=== PATIENT | female | born 2000 | race Caucasian/White ===

== ENCOUNTER 2020-02-26 17:11 | Outpatient (CLI) | payer OTHER, SELFPAY ==
[2020-02-27 10:33] LABS: COVID-19 RT-PCR Result Negative (Negative)
== END 2020-02-26 17:31 ==
PROVIDERS: PCP Family Medicine; Visit Provider Physician Assistant
DX: R05 Cough (principal)
CPT/HCPCS: U0003

== ENCOUNTER 2021-03-12 19:35 | Outpatient (REF) | payer OTHER, SELFPAY ==
[2021-03-12 19:47] LABS: Anion Gap 12.2 mmol/L (3-11); BUN 8 mg/dL (7-18); CO2 24.8 mmol/L (21.0-32.0); CREATININE 0.9 mg/dL (0.55-1.02); Calcium 9.5 mg/dL (8.5-10.1); Chloride 105 mmol/L (98-107); Glucose 75 mg/dL (74-106); Potassium 4.2 mmol/L (3.5-5.1); Sodium 142 mmol/L (136-145); TSH (W/Ref FT4) 1.72 uIU/mL (0.36-3.74)
== END 2021-03-12 19:36 | disposition home or self-care (01) ==
LOC: NCHCN 19:35
PROVIDERS: PCP Family Medicine; Visit Provider Family Medicine
DX: R00.2 Palpitations (principal)
CPT/HCPCS: 80048; 83036; 84443

== ENCOUNTER 2021-08-19 19:54 | Outpatient (REF) | payer OTHER, SELFPAY ==
[2021-08-19 21:58] LABS: Bilirubin Negative (Negative); Blood Moderate (Negative); Clarity Clear (Clear); Glucose Negative (Negative); Ketones Negative (Negative); Leukocyte Esterase Trace (Negative); Nitrite Negative (Negative); Urobilinogen 0.2 EU/dL (Up TO 0.2)
[2021-08-19 22:10] LABS: Bacteria Few HPF (Negative); C & S Indicated? Yes; Casts Negative LPF (Negative); Crystals Negative HPF (Negative); Epithelial Cells Rare HPF (Negative); Mucus Negative (Negative)
== END 2021-08-19 19:55 | disposition home or self-care (01) ==
LOC: LBN 19:54
PROVIDERS: PCP Family Medicine; Visit Provider Nurse Practitioner Family
DX: R30.0 Dysuria (principal)
CPT/HCPCS: 81003; 81015; 87086

== ENCOUNTER 2022-01-04 12:13 | Outpatient (REF) | payer OTHER, SELFPAY ==
--- NOTE | 2022-01-04 09:30 | PAPFT_PTH ---
PATIENT: Emelina Reddy LOC: [facility]#:[id number] AGE/SX: 21/F ROOM: RE01/04/[address]: Antonieta Armstrong : 2000 BED: DIS: 01/04/2022 SPEC #: [id number] RECD: 01/04/22 17:30 STATUS: NAIF SANTOS #: [id number] KHALIDA: 01/04/22 09:[address]: Antonieta Armstrong DEPT: REPLACED BY [facility] Cytology RECD BY: Catia Fox Tissues: 1 - CX/ENDOCX FOR PAP SMEARS Procedures: PAP THIN PREP/[facility] Screening Comments: [id number] (CHLAMYDIA/GC)
[2022-01-05 15:16] LABS: Chlamydia Result Negative (Negative); GC Result Negative (Negative)
== END 2022-01-04 12:14 | disposition home or self-care (01) ==
LOC: NCHCN 12:13
PROVIDERS: PCP Family Medicine; Visit Provider Family Medicine
DX: Z12.4 Encounter for screening for malignant neoplasm of cervix (principal); Z11.3 Encounter for screening for infections with a predominantly sexual mode of transmission
CPT/HCPCS: 87491; 87591; 88142

== ENCOUNTER 2022-10-18 17:36 | Outpatient (REF) | payer OTHER, SELFPAY ==
[2022-10-20 10:19] LABS: Hepatitis C Ab w Rflx HCV PCR Negative (Negative)
[2022-10-20 10:38] LABS: HIV-1/2 Ag & Ab Screen Negative (Negative)
== END 2022-10-18 17:37 | disposition home or self-care (01) ==
LOC: NCHCN 17:36
PROVIDERS: PCP Family Medicine; Visit Provider Family Medicine
DX: Z00.00 Encounter for general adult medical examination without abnormal findings (principal); Z11.4 Encounter for screening for human immunodeficiency virus [HIV]; Z11.59 Encounter for screening for other viral diseases
CPT/HCPCS: 86803; 87389

== ENCOUNTER 2024-03-16 14:21 | Outpatient (REF) | payer OTHER, SELFPAY ==
[2024-03-16 19:30] LABS: Hemoglobin A1C 5.1 % (<5.7)
[2024-03-16 19:33] LABS: ALT 33 U/L (14-59); AST 17 U/L (15-37); Alkaline Phosphatase 93 U/L (46-116); Anion Gap 11.4 mmol/L (3-11); BUN 8 mg/dL (7-18); Bilirubin, Total 0.4 mg/dL (0.2-1.0); CO2 25.6 mmol/L (21.0-32.0); CREATININE 0.7 mg/dL (0.55-1.02); Chloride 103 mmol/L (98-107); Estimated GFR 124.55 (mL/min/1.73m2); Glucose 78 mg/dL (74-106); Potassium 3.9 mmol/L (3.5-5.1); Sodium 140 mmol/L (136-145); TSH (W/Ref FT4) 1.58 uIU/mL (0.36-3.74); Total Protein 7.1 g/dL (6.4-8.2)
== END 2024-03-16 14:22 | disposition home or self-care (01) ==
LOC: NCHCN 14:21
PROVIDERS: PCP Family Medicine; Visit Provider Family Medicine
DX: E66.9 Obesity, unspecified (principal)
CPT/HCPCS: 80053; 83036; 84443

== ENCOUNTER 2024-12-21 00:39 | Outpatient (CLI) | payer OTHER, SELFPAY ==
--- OUTSIDE RECORDS SUMMARY | 2024-12-21 00:40 | XMS_ITS | Encounter Summary ---
Author Organization [facility] Address [facility] [place] [address] Care Team Providers Care Cleaner And Presser Name Role Phone Antonieta Armstrong MD Primary Care Provider [phone] Encounter Details Date Type Department Care Team (Late st Contact Info) Description 11/25/2022 Orders [place] [address] Jsoe Chappell MD [facility] [place] [address] Need for prophylactic vaccination and inoculation against rabies Social History Tobacco Use Types Packs/Day Years Used Date Smoking Tobacco: Never Smokeless Tobacco: Never Sex and Gender Information Value Date Recorded Sex Assigned at Not on file Gender Identity Not on file Sexual Orientation Not on file documented as of this encounter Plan of Treatment Not on file documented as of this encounter Visit Diagnoses Diagnosis Need for prophylactic vaccination and inoculation against rabies documented in this encounter Care Teams Cleaner And Presser Relationship Specialty Start Date End Date Antonieta Armstrong MD [facility] [address] [place] [address] PCP - General Family Medicine 01/29/19 documented as of this encounter
--- OUTSIDE RECORDS SUMMARY | 2024-12-21 00:40 | XMS_ITS | Encounter Summary ---
Author Organization [facility] Address [facility] [place] [address] Care Team Providers Care Barrel Charrer Name Role Phone Antonieta Armstrong MD Primary Care Provider [phone] Encounter Details Date Type Department Care Team (Late st Contact Info) Description 11/25/2022 Telephone [place] [phone] Destinee Phipps RN Social History Tobacco Use Types Packs/Day Years Used Date Smoking Tobacco: Never Smokeless Tobacco: Never Sex and Gender Information Value Date Recorded Sex Assigned at Not on file Gender Identity Not on file Sexual Orientation Not on file documented as of this encounter Miscellaneous Notes * Telephone Encounter - Destinee Phipps RN - 11/25/2022 11:35 AM EST Referral received for rabies series as pt is in [employer] school. Reviewed with Dr Chappell: OK to proceed with 3 dose series. Per CDC: Risk category 3 People who interact with, or are at higher risk to interact, with mammals other than bats that could be rabid, for a period longer than three years after they receive PrEP This group includes: Most veterinarians, veterinary technicians, animal control officers, wildlife biologists, rehabilitators, trappers, and spelunkers (cave explorers) Certain travelers to regions outside of the [place] where rabies in dogs is commonly found 2 doses, days 0 and 7, plus: Either a one-time titer check after 1 year and up to 3 years following the first 2-dose vaccination OR 1-dose booster between 3 weeks and 3 years following the first vaccine in the 2- dose vaccination Message sent to the secretaries to schedule 3 dose series. Day 0, day 7, day 28 documented in this encounter Plan of Treatment Not on file documented as of this encounter Visit Diagnoses Not on filedocumented in this encounter Care Teams Barrel Charrer Relationship Specialty Start Date End Date Antonieta Armstrong MD [facility] [address] [facility] [address] [place] [address] PCP - General Family Medicine 01/29/19 documented as of this encounter
--- OUTSIDE RECORDS SUMMARY | 2024-12-21 00:40 | XMS_ITS | Clinical Summary ---
Author Organization [facility] Address [facility] [place] [address] Care Team Providers Care Telecom Field Technician Name Role Phone Antonieta Armstrong MD Primary Care Provider [phone] Allergies Active Allergy Reactions Criticality Noted Date Comments Amoxicillin Hives 01/29/2019 Medications Medication Sig Dispensed Refills Start Date End Date Status buPROPion (WELLBUTRIN SR) 100 mg tablet sustained-release 12 hr TAKE ONE TABLET BY MOUTH TWICE A DAY 5 12/12/2018 Active montelukast (SINGULAIR) 10 mg Tablet 01/14/2019 Active LOW-OGESTREL, 28, 0.3-30 mg-mcg Tablet 01/12/2019 Acti ve doxycycline (VIBRA-TABS) 100 mg TabletIndications:At risk for infectious disease due to recent foreign travel,Counseling for travel Take 2 capsules (200 mg total) once weekly starting a few days prior to travel. Continue weekly for two additional weeks. 6 tablet 01/31/2019 Active Active Problems Problem Noted Date Diagnosed Date Health care maintenance 01/29/2019 Immunizations Name Administration Dates Next Due DTaP 02/03/2007, 2,04/14/2001,01/09,2000 HIB PRP-T Conjugate (ActHIB, Hiberix, OmniHib) 01/08/2002,04/14/2001,01/09/2001,11/14 HPV 9-Valent (Gardasil 9) 04/14/2018,12/16/2017, 10/17/2017 Hepatitis A Pediatric/Adoles cent (Havrix, Vaqta) 01/29/2019 Hepatitis B Pediatric/Adoles cant (Engerix-B, Recombivax) 06/16/2001,2000,2000 Influenza Quadrivalent with Preservative 01/29/2019 Influenza Trivalent w/Preservative 10/17/2017 MMR Vaccine LIVE 02/03/2007,10/03/2001 Meningococcal Acwy, Unspecif ied Formulation 10/17/2017,06/13/2012 Pneumococcal 7-Valent Conjug ate (Prevnar 7) 08/20/2010,06/16/2001,04/14/2001,01/09 Polio Inactivated (IPOL) 02/03/2007,03/2001,2000,10/03 Tdap (Adacel, Boostrix) 06/13/2012 Typhoid Live, Oral 01/29/2019 Varicella LIVE (Varivax) 02/03/2007,10/03/2001 Social History Tobacco Use Types Packs/Day Years Used Date Smoking Tobacco: Never Smokeless Tobacco: Never Sex and Gender Information Value Date Recorded Sex Assigned at Not on file Gender Identity Not on file Sexual Orientation Not on file Plan of Treatment Health Maintenance Due Date Last Done Comments Chlamydia Screening 2015 HIV screen 2018 Hepatitis C Screening 2018 PAP Smear 2021 Tetanus/Diphtheria/Pertussis Vaccines (7 - Td or Tdap) 06/13/2022 06/13/2012, 02/03/2007, 01/08/2002, Additional history exists Covid-19 Vaccine (1 - 2023-2 5 season) 2024 Influenza (Flu) vaccine (1 o f 1 - Influenza standard series) 07/08/2024 01/29/2019, 10/17/2017 Hepatitis B vaccine (0-59 yrs) Completed 0 06/16/2001, 2000, 2000 HPV vaccine Completed 04/14/2018, 07/2018, 10/17/2017 Care Teams Telecom Field Technician Relationship Specialty Start Date End Date Antonieta Armstrong MD [address] [facility] [address] [place] [address] PCP - General Family Medicine 01/29/19
--- OUTSIDE RECORDS SUMMARY | 2024-12-21 00:40 | XMS_ITS | Encounter Summary ---
Author Organization [facility] [place] [address] Care Team Providers Care Labor Conciliator Name Role Phone Antonieta Armstrong MD Primary Care Provider [phone] Reason for Referral * Consultation (Routine) - Closed Specialty Diagnoses / Procedures Referred By Contac t Referred To Contact Infectious Diseases Diagnoses Need for prophylactic vaccination and inoculation against rabies Antonieta Armstrong MD [address] [place] [address] [facility] [address] [place] [phone] Referral ID Status Reason Start Date Expiration Date V isits Requested Visits Authorized [id number] Closed Consult, Test & Treat PCP Updated and/or Approved 11/10/2022 11/10/2023 12 12 Encounter Details Date Type Department Care Team (Latest Contact Info) Description 11/10/2022 Transcribe Orders eDH Incoming Referrals [phone] Antonieta Armstrong MD [address] [place] [address] Need for prophylactic vaccination and inoculation against rabies Social History Tobacco Use Types Packs/Day Years Used Date Smoking Tobacco: Never Smokeless Tobacco: Never Sex and Gender Information Value Date Recorded Sex Assigned at Not on file Gender Identity Not on file Sexual Orientation Not on file documented as of this encounter Plan of Treatment Scheduled Referrals Name Type Priority Associated Diagnoses Orde r Schedule Referral to Infectious Disease and [facility] Outpatient Referral Routine Need for prophylactic vaccination and inoculation against rabies Ordered: 11/10/2022 documented as of this encounter Visit Diagnoses Diagnosis Need for prophylactic vaccination and inoculation against rabies documented in this encounter Care Teams Labor Conciliator Relationship Specialty Start Date End Date Antonieta Armstrong MD [address] [facility] [address] [place] [address] PCP - General Family Medicine 01/29/19 documented as of this encounter
--- OUTSIDE RECORDS SUMMARY | 2024-12-21 00:40 | XMS_ITS | Encounter Summary ---
Author Organization [facility] Address [facility] [place] [address] Care Team Providers Care Olericulture Professor Name Role Phone Antonieta Armstrong MD Primary Care Provider [phone] Reason for Visit * Reason Comments Travel Consult Encounter Details Date Type Department Care Team (Late st Contact Info) Description 01/29/2019 2:00 PM EDT Office [place] [phone] Dianne Sy, RN Need for prophylactic vaccination with typhoid-paratyphoid (TAB) vaccine; Need for prophylactic vaccination and inoculation against viral hepatitis; Need for prophylactic vaccination and inoculation against influenza; Counseling for travel Social History Tobacco Use Types Packs/Day Years Used Date Smoking Tobacco: Never Smokeless Tobacco: Never Sex and Gender Information Value Date Recorded Sex Assigned at Not on file Gender Identity Not on file Sexual Orientation Not on file documented as of this encounter Progress Notes * Dianne Sy RN - 01/29/2019 2:00 PM EDT Adult Travel Clinic Reason for Visit: Emelina Reddy is a 18 y.o. female patient who comes to travel clinic today forpre-travel evaluation, vaccination and traveler's health education. 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 Health care maintenance Z00.00 Current Outpatient Medications Medication Sig Dispense Refill ??? buPROPion (WELLBUTRIN SR) 100 mg tablet sustained-release 12 hr TAKE ONE TABLET BY MOUTH TWICE A DAY 5 ??? montelukast (SINGULAIR) 10 mg Tablet ??? LOW-OGESTREL, 28, 0.3-30 mg-mcg Tablet No current facility-administered medications for this visit. Immunosuppression: none History of adverse vaccine reactions: no History of latex, egg or beesting allergy: no or : no Patient advised to carry all medications in carry on luggage. Travel Health and Safety Issues: A discussion of travel health hazards and safety issues was done, including the following topics: traffic-accidents (alcohol, seatbelts), crime, alcohol related issues, sun exposure/heat illness, Schistosomiasis and other fresh water exposures, rabies, HIV infections, Hepatitis and other STD's, control, TB, Health Insurance coverage/[employer]. Discussed food and water precautions and patient handout provided. The following strategies were recommended for the management of traveler's diarrhea according to severity: ?? For treatment of mild diarrhea: hydration and over the counter antidiarrheal recommended. ?? For treatment of diarrhea accompanied by fever or systemic illness: hydration and antidiarrheal recommended. Traveler declined antibiotic for treatment of traveler's diarrhea with fever. ?? For severe or bloody diarrhea, or diarrhea accompanied by vomiting: patient advised to seek medical treatment. Vector-borne Disease Prevention Discussed insect bite prevention to reduce risk of malaria, dengue, chikungunya and other insect borne illnesses. Handout given. Discussed Zika virus and the importance of mosquito precautions. Advised condom use while in area at risk and for two months after return to the [place]. Malaria Risk: No malaria risk on this particular trip. Altitude: This trip does not involve high altitude. Immunizations Immunization History Administered Date(s) Administered ??? DTaP 2000, 01/09/2001, 04/14/2001, 01/08/2002, 02/03/2007 ??? HIB PRP-T 2000, 01/09/2001, 04/14/2001, 01/08/2002 ??? HPV, 9-Valent 10/17/2017, 12/16/2017, 04/14/2018 ??? Hepatitis A Vaccine, Ped/adol, 2 Dose 01/29/2019 ??? Hepatitis B Vaccine, Ped/adol 2000, 2000, 06/16/2001 ??? Inactivated Polio Vaccine 2000, 2000, 01/09/2001, 02/03/2007 ??? Influenza Vaccine W/preservative, Quadrivalent 01/29/2019 ??? Influenza Vaccine w/Preservative, Split 10/17/2017 ??? MMR Vaccine, Live 10/03/2001, 02/03/2007 ??? Meningococcal Conjugate 06/13/2012, 10/17/2017 ??? Pneumococcal Conjugate 7 01/09/2001, 04/14/2001, 06/16/2001, 08/20/2010 ??? Tdap Vaccine 06/13/2012 ??? Typhoid Live, Oral 01/29/2019 ??? Varicella Vaccine, LIVE 10/03/2001, 02/03/2007 Immunizations given today- oral typhoid, hepatitis A #1 and influenza. Traveler is up to date with routine vaccinations including Tdap. Rabies- discussed animal avoidance, wound care and need for post-exposure prophylaxis. Follow-up Recommendations: Traveler will return to PCP in six months for second hepatitis A vaccine.] Patient advised to call travel clinic if they return from trip with any illness. Time spent in travel counselin minutes. Vaccine information sheets given. documented in this encounter Plan of Treatment Not on file documented as of this encounter Visit Diagnoses Diagnosis Need for prophylactic vaccination with typhoid-paratyphoid (TAB) vaccine Need for prophylactic vaccination with typhoid-paratyphoid alone (TAB) Need for prophylactic vaccination and inoculation against viral hepatitis Need for prophylactic vaccination and inoculation against influenza Counseling for travel Other specified counseling documented in this encounter Care Teams Olericulture Professor Relationship Specialty Start Date End Date Antonieta Armstrong MD [address] [place] [address] PCP - General Family Medicine 01/29/19 documented as of this encounter
--- OUTSIDE RECORDS SUMMARY | 2024-12-21 00:40 | XMS_ITS | Encounter Summary ---
[place] [address] Care Team Providers Care Media Job Titles Name Role Phone Antonieta Armstrong MD Primary Care Provider [phone] Reason for Visit * Reason Onset Date Comments Medication Refill 01/31/2019 Encounter Details Date Type Department Care Team (Late st Contact Info) Description 01/31/2019 [place] [phone] Dianne Sy, GABI At risk for infectious disease due to recent foreign travel; Counseling for travel Social History Tobacco Use Types Packs/Day Years Used Date Smoking Tobacco: Never Smokeless Tobacco: Never Sex and Gender Information Value Date Recorded Sex Assigned at Not on file Gender Identity Not on file Sexual Orientation Not on file documented as of this encounter Plan of Treatment Not on file documented as of this encounter Visit Diagnoses Diagnosis At risk for infectious disease due to recent foreign travel Counseling for travel Other specified counseling documented in this encounter Care Teams Media Job Titles Relationship Specialty Start Date End Date Antonieta Armstrong MD [facility] [address] [place] [address] PCP - General Family Medicine 01/29/19 documented as of this encounter
--- OUTSIDE RECORDS SUMMARY | 2024-12-21 00:41 | XMS_ITS | Encounter Summary ---
Author Organization [facility] Address [address] [place] [address] Care Team Providers Care Data Modeler Name Role Phone Antonieta Armstrong MD Primary Care Provider [phone] Encounter Details Date Type Department Care Team (Latest Contact Info) Description 11/22/2024 Lab Requisition [facility] Pathology & Laboratory Medicine - [facility] [address] [place] [address] Antonieta Armstrong MD [address] [facility] [address] [place] [address] Encounter for screening for malignant neoplasm of cervix; Encounter for gynecological examination (general) (routine) without abnormal findings Social History Tobacco Use Types Packs/Day Years Used Date Smoking Tobacco: Never Smokeless Tobacco: Never Comments Unknown Sex and Gender Information Value Date Recorded Sex Assigned at Not on file Legal Sex Female 15:50 EST Gender Identity Not on file Sexual Orientation Not on file documented as of this encounter Plan of Treatment Upcoming Encounters Date Type Department Care Team (Late st Contact Info) Description 01/23/2025 9:00 EDT Office Visit [facility] Dermatology [address] [facility], [place] [address] Ruthy Tang MD [address] [facility] [address] [place] [address] documented as of this encounter Procedures Procedure Name Priority Date/Time Associated Diagnosis Comments PAP TEST Today 11/21/2024 10:10 EST Encounter for screening for malignant neoplasm of cervix Encounter for gynecological examination (general) (routine) without abnormal findings documented in this encounter Results * PAP TEST (11/21/2024 10:10 EST) Specimens A. Cervix and/or Endocervix , ThinPrep Imaging System with Manual Evaluation 12/03/2024 11:48 [facility] Specimen Adequacy Unsatisfactory for evaluation-Insuf ficient number of squamous epithelial cells. Specimen processed and examined. 12/03/2024 11:48 [facility] General Categorization Unsatisfactory 12/03/2024 11:48 [facility] Educational Comments Unsatisfactory - Specimen processed and examined, but unsatisfactory for evaluation of epithelial abnormality. Recommend repeat age-based screening after 2-4 months per ASCCP Guidelines which may be found at www.asccp.org. HPV testing will not be performed due to the potential for false negative results. 12/03/2024 11:48 [facility] Attestation . 12/03/2024 11:48 [facility] at 1148 Clinical History See below 12/03/19 11:48 [facility] Performing Lab [facility] 12/03/2024 11:48 [facility] Scanned Images 12/03/2024 11:48 [facility] Pap Test CERVIX UTERI STRUCTURE / Unknown 11/21/2024 10:10 EST 11/22/2024 10:03 EST us Antonieta Armstrong MD PATHOLOGY ORDERABLES Final Resul t [facility] [address] [place] [address] documented in this encounter Visit Diagnoses Diagnosis Encounter for screening for malignant neoplasm of cervix Screening for malignant neoplasm of the cervix Encounter for gynecological examination (general) (routine) without abnormal findings documented in this encounter Care Teams Data Modeler Relationship Specialty Start Date End Date Antonieta Armstrong MD [address] [place] [phone] PCP - General 10/26/23 documented as of this encounter
--- OUTSIDE RECORDS SUMMARY | 2024-12-21 00:41 | XMS_ITS | Encounter Summary ---
Author Organization [facility] Address [address] [place] [address] Care Team Providers Care Assistant Principal Name Role Phone Antonieta Armstrong MD Primary Care Provider [phone] Encounter Details Date Type Department Care Team (Latest Contact Info) Description 01/05/2022 Lab Requisition [facility] Pathology & Laboratory Medicine - [facility] [address] [place] [address] Antonieta Armstrong MD [address] [facility] [address] [place] [address] Encounter for gynecological examination (general) (routine) without abnormal findings Social History Tobacco Use Types Packs/Day Years Used Date Smoking Tobacco: Never Assessed Comments Unknown Sex and Gender Information Value Date Recorded Sex Assigned at Not on file Legal Sex Female 15:50 EST Gender Identity Not on file Sexual Orientation Not on file documented as of this encounter Plan of Treatment Upcoming Encounters Date Type Department Care Team (Late st Contact Info) Description 01/23/2025 9:00 EDT Office Visit [facility] Dermatology [address] [facility], [place], [place] [address] Ruthy Tang MD [address] [facility] [address] [place] [address] documented as of this encounter Procedures Procedure Name Priority Date/Time Associated Diagnosis Comments PAP TEST Today 01/04/2022 9:30 EST Encounter for gynecological examination (general) (routine) without abnormal findings documented in this encounter Results * PAP TEST (01/04/2022 9:30 EST) Specimens A. Cervix and/or Endocervix , ThinPrep Imaging System with Manual Evaluation 01/11/2022 13:29 [facility] Specimen Adequacy Satisfactory for Evaluation - transformation zone component present Scant squamous epithelial component 01/11/2022 13:29 [facility] General Categorization Negative for intraepithelial lesion or malignancy 01/11/2022 13:29 [facility] Attestation . 01/11/2022 13:29 [facility] at 1329 Clinical History See below 01/12/20 13:29 [facility] Performing Lab [facility] 01/11/2022 13:29 [facility] Scanned Images 01/11/2022 13:29 [facility] Papanicolaou smear specimen (specimen) CERVIX UTERI STRUCTURE / Unknown 01/04/2022 9:30 EST 01/05/2022 12:26 EST us Antonieta Armstrong MD PATHOLOGY ORDERABLES Final Resul t [facility] [address] [place] [address] documented in this encounter Visit Diagnoses Diagnosis Encounter for gynecological examination (general) (routine) without abnormal findings documented in this encounter Care Teams Assistant Principal Relationship Specialty Start Date End Date Antonieta Armstrong MD [address] [place] [phone] PCP - General 10/26/23 documented as of this encounter
--- OUTSIDE RECORDS SUMMARY | 2024-12-21 00:41 | XMS_ITS | Clinical Summary ---
Author Organization [facility] Address [address] [place] [address] Care Team Providers Care Marketing Account Manager Name Role Phone Antonieta Armstrong MD Primary Care Provider [phone] Allergies Active Allergy Reactions Criticality Noted Date Comments Amoxicillin Hives 01/29/2019 Cat Dander 03/05/2024 Medications albuterol 90 mcg/actuation inhaler INHALE 1-2 PUFFS BY MOUTH EVERY 4-6 HOURS NEEDED 3 Active DULERA 100-5 mcg/actuation Inhale 2 Puffs as directed 2 times daily. 3 Active ketoconazole (NIZORAL) 2 % shampoo Apply topically to affected area daily. To the scalp, leave on 3-5 minutes then rinse off 120 mL 11 4 Active ketoconazole (NIZORAL) 2 % cream Apply topically to affected area daily. To the eyebrows 30 g 11 4 Active Encounters Date Type Department Care Team Description 11/22/2024 Lab Requisition [facility] Pathology & Laboratory Medicine - [facility] [address] [place] [address] Antonieta Armstrong MD Encounter for screening for malignant neoplasm of cervix; Encounter for gynecological examination (general) (routine) without abnormal findings from Last 3 Months Social History Tobacco Use Types Packs/Day Years Used Date Smoking Tobacco: Never Smokeless Tobacco: Never Comments Unknown Sex and Gender Information Value Date Recorded Sex Assigned at Not on file Legal Sex Female 15:50 EST Gender Identity Not on file Sexual Orientation Not on file Obstetrics History Plan of Treatment Upcoming Encounters Date Type Department Care Team (Late st Contact Info) Description 01/23/2025 9:00 EDT Office Visit [facility] Dermatology [address] [place] [address] Ruthy Tang MD [address] [place] [address] [place] [phone] Health Maintenance Due Date Last Done Comments Hepatitis B Vaccine (1 of 3 - 19+ 3-dose series) 08/28 COVID-19 Vaccine (2023- season) 2024 Hepatitis C Screen Completed 10/18/2022 Procedures Procedure Name Priority Date/Time Associated Diagnosis Comments PAP TEST Today 11/21/2024 10:10 EST Encounter for screening for malignant neoplasm of cervix Encounter for gynecological examination (general) (routine) without abnormal findings HEPATITIS C AB W REFLEX TO HCV RNA BY PCR Routine 10/18/2022 16:24 EST from Last 3 Months or Most Recently Relevant to Health Maintenance Results * PAP TEST (11/21/2024 10:10 EST) Specimens A. Cervix and/or Endocervix , ThinPrep Imaging System with Manual Evaluation 12/03/2024 11:48 [facility] Specimen Adequacy Unsatisfactory for evaluation-Insuf ficient number of squamous epithelial cells. Specimen processed and examined. 12/03/2024 11:48 [facility] General Categorization Unsatisfactory 12/03/2024 11:48 [facility] Educational Comments Unsatisfactory - Specimen processed and examined, but unsatisfactory for evaluation of epithelial abnormality. Recommend repeat age-based screening after 2-4 months per ASCCP Guidelines which may be found at www.asccp.org. HPV testing will not be performed due to the potential for false negative results. 12/03/2024 11:48 [facility] Attestation . 12/03/2024 11:48 [facility] at 1148 Clinical History See below 12/03/19 11:48 [facility] Performing Lab [facility] 12/03/2024 11:48 EST [facility] Scanned Images 12/03/2024 11:48 EST [facility] Pap Test CERVIX UTERI STRUCTURE / Unknown 11/21/2024 10:10 EST 11/22/2024 10:03 EST us Antonieta Armstrong MD PATHOLOGY ORDERABLES Final Resul t [facility] [address] [place] [address] * HEPATITIS C AB W REFLEX TO HCV RNA BY PCR (10/18/2022 16:24 EST) Hep C Antibody Negative Negative 10/20/2022 10:14 EST [facility] Blood VENOUS BLOOD / Unknown 10/18/2022 16:24 EST 10/19/2022 16:47 EST us Provider Outr Resulting Lab CHEMISTRY & BLOOD GA S ORDERABLES Final Result [facility] [address] [place] [address] from Last 3 Months or Most Recently Relevant to [place] [address] [place] [phone] [facility] Care Teams Marketing Account Manager Relationship Specialty Start Date End Date Antonieta Armstrong MD [address] [place] [phone] PCP - General 10/26/23
--- OUTSIDE RECORDS SUMMARY | 2024-12-21 00:41 | XMS_ITS | Referral Summary ---
Author Organization [facility] Address [address] [place] [address] Care Team Providers Care Oven Operator Automatic Name Role Phone Antonieta Armstrong MD Primary Care Provider [phone] Encounters Date Type Department Care Team Description 11/22/2024 Lab Requisition [facility] Pathology & Laboratory Medicine - [facility] [address] [place] [address] Antonieta Armstrong MD Encounter for screening for malignant neoplasm of cervix; Encounter for gynecological examination (general) (routine) without abnormal findings from Last 3 Months Allergies Active Allergy Reactions Criticality Noted Date [...] the eyebrows 30 g 11 4 Active Social History Tobacco Use Types Packs/Day Years Used Date Smoking Tobacco: Never Smokeless Tobacco: Never Comments Unknown Sex and Gender Information Value Date Recorded Sex Assigned at Not on file Legal Sex Female 15:50 EST Gender Identity Not on file Sexual Orientation Not on file Plan of Treatment Upcoming Encounters Date Type Department Care Team ([facility] st Contact Info) Description 01/23/2025 9:00 EDT Office Visit [facility] [place] [address] [facility], [place] [address] Ruthy Tang MD [address] [place] [phone] Procedures Procedure Name Priority Date/Time Associated Diagnosis [...] Imaging System with Manual Evaluation 12/03/2024 11:48 [facility] Specimen Adequacy Unsatisfactory for evaluation-Insuf ficient number of squamous epithelial cells. Specimen processed and examined. 12/03/2024 11:48 [facility] General Categorization Unsatisfactory 12/03/2024 11:48 [facility] Educational Comments Unsatisfactory - Specimen processed and examined, but unsatisfactory for evaluation of epithelial abnormality. Recommend repeat age-based screening after 2-4 months per ASCCP Guidelines which may be found at www.asccp.org. HPV testing will not be performed due to the potential for false negative results. 12/03/2024 11:48 [facility] Attestation . 12/03/2024 11:48 [facility] at 1148 Clinical History See below 12/03/19 11:48 [facility] Performing Lab [facility] 12/03/2024 11:48 [facility] Scanned Images 12/03/2024 11:48 [facility] Pap Test CERVIX UTERI STRUCTURE / Unknown 11/21/2024 10:10 EST 11/22/2024 10:03 EST us Antonieta Armstrong MD PATHOLOGY ORDERABLES Final Resul t [facility] [address] [place] [address] * HEPATITIS C AB W REFLEX TO HCV RNA BY PCR (10/18/2022 16:24 EST) Hep C Antibody Negative Negative 10/20/2022 10:14 EST [facility] Blood VENOUS BLOOD / Unknown 10/18/2022 16:24 EST 10/19/2022 16:47 EST us Provider Outr Resulting Lab CHEMISTRY & BLOOD GA S ORDERABLES Final Result [facility] [address] [place] [address] from Last 3 Months or Most Recently Relevant to Health Maintenance Insurance [facility] Care Teams Oven Operator Automatic Relationship Specialty Start Date End Date Antonieta Armstrong MD [address] [place] [phone] PCP - General 10/26/23
--- OUTSIDE RECORDS SUMMARY | 2024-12-21 00:41 | XMS_ITS | Encounter Summary ---
Author Organization [facility] Address [address] [place] [address] Care Team Providers Care Mcat Instructor Name Role Phone Antonieta Armstrong MD Primary Care Provider [phone] Encounter Details Date Type Department Care Team (Late st Contact Info) Description 10/19/2022 Lab Requisition [facility] Pathology & Laboratory Medicine - [facility] [address] [place] [address] Outr Resulting Lab, Provider Social History Tobacco Use Types Packs/Day Years [...] Info) Description 01/23/2025 9:00 EDT Office Visit [facility] Dermatology [address] [place] [address] Ruthy Tang MD [address] [place] [address] [place] [phone] documented as of this encounter Procedures Procedure Name Priority Date/Time Associated Diagnosis Comments HEPATITIS C AB W REFLEX TO HCV RNA BY PCR Routine 10/18/2022 16:24 EST documented in this encounter Results * HEPATITIS C AB W REFLEX TO HCV RNA BY PCR (10/18/2022 16:24 EST) Hep C Antibody Negative Negative 10/20/2022 10:[address] [facility] Blood VENOUS BLOOD / Unknown 10/18/2022 16:24 EST 10/19/2022 16:47 EST us Provider Outr Resulting Lab CHEMISTRY & BLOOD GA S ORDERABLES Final Result Performing Organization Address City/State/[facility] Co de Phone Number [facility] [address] [place] [address] documented in this encounter Visit Diagnoses Not on filedocumented in this encounter Care Teams Mcat Instructor Relationship Specialty Start Date End Date Antonieta Armstrong MD [address] [place] [phone] PCP - General 10/26/23 documented as of this encounter
--- OUTSIDE RECORDS SUMMARY | 2024-12-21 00:41 | XMS_ITS | Encounter Summary ---
Author Organization [facility] Address [address] [place] [address] Care Team Providers Care Blind Slat Stapling Machine Operator Name Role Phone Antonieta Armstrong MD Primary Care Provider [phone] Encounter Details Date Type Department Care Team (Late st Contact Info) Description 01/04/2022 Lab Requisition [facility] Pathology & Laboratory Medicine - [facility] [address] [place] [address] Outr Resulting Lab, Provider Social History Tobacco [...] Info) Description 01/23/2025 9:00 EDT Office Visit [facility] [place] [address] [place] [address] Ruthy Tang MD [address] [place] [address] [place] [phone] documented as of this encounter Procedures Procedure Name Priority Date/Time Associated Diagnosis Comments CHLAMYDIA/N. GONORRHOEAE AMPLIFIED NUCLEIC ACID, THINPREP Routine 01/04/2022 9:30 EST documented in this encounter Results * CHLAMYDIA/N. GONORRHOEAE AMPLIFIED RNA, THINPREP (01/04/2022 9:30 EST) Neisseria gonorrhoeae Result Negative Negative 01/05/2022 15:[address] [facility] Chlamydia trachomatis Result Negative Negative 01/05/2022 15:[address] [facility] Papanicolaou smear specimen (specimen) CERVIX UTERI STRUCTURE / Unknown 01/04/2022 9:30 EST 01/05/2022 7:36 EST us Provider Outr Resulting Lab MICROBIOLOGY - GENER AL ORDERABLES Final Result Performing Organization Address City/State/[facility] Co de Phone Number [facility] [address] [place] [address] documented in this encounter Visit Diagnoses Not on filedocumented in this encounter Care Teams Blind Slat Stapling Machine Operator Relationship Specialty Start Date End Date Antonieta Armstrong MD [address] [place] [phone] PCP - General 10/26/23 documented as of this encounter
--- OUTSIDE RECORDS SUMMARY | 2024-12-21 00:41 | XMS_ITS | Encounter Summary ---
Author Organization [facility] Address [address] [place] [address] Care Team Providers Care Destaticizer Feeder Name Role Phone Antonieta Armstrong MD Primary Care Provider [phone] Reason for Visit * Reason Comments New Patient Visit Rash of scalp, has b een going on for a few years. Tried fluocinonide solution, but stopped due to burning. Not using anything currently * Referral (Routine) - Authorization Not Required Specialty Diagnoses / Procedures Referred By [facility] Referred To Contact Dermatology Diagnoses Seborrhea capitis Antonieta Armstrong MD [address] [facility] [address] [place] [phone] Phone: tel: fax: [facility] Dermatology [address] [place] [address] Phone: tel: fax: Referral ID Status Reason Start Date Expiration Date Visits Requested Visits Authorized [id number] Authorization Not Required 1 1 Encounter Details Date Type Department Care Team (Late st Contact Info) Description 03/05/2024 14:20 EDT Office Visit [facility] Dermatology [address] [place] [address] Ruthy Tang MD [address] [facility] [address] [place] [phone] Seborrheic dermatitis (Primary Dx) Social History Tobacco Use Types Packs/Day Years Used Date Smoking Tobacco: Never Smokeless Tobacco: Never Comments Unknown Sex and Gender Information Value Date Recorded Sex Assigned at Not on file Legal Sex Female 15:50 EST Gender Identity Not on file Sexual Orientation Not on file documented as of this encounter Patient Instructions * Patient Instructions* Claudette Shaffer - 03/05/2024 14:20 EDT - Wash scalp with ketoconazole shampoo. Let sit for 3-5 minutes before washing off. Repeat on days of shower. Can apply regular shampoo and conditioner afterward. - May consider alternating between ketoconazole shampoo and over the counter Tsal shampoo if more scaly. - Apply ketoconazole cream to affected area of the left brow daily as needed. - Apply fluocinonide to the face twice a day for up to 2 weeks per month as needed for itch. To help with stinging, recommend mixing with an oil. Do not mix in olive oil. documented in this encounter Ordered Prescriptions Prescription Sig Dispense Quantity Refills Last Filled Start Date End Date ketoconazole (NIZORAL) 2 % cream Apply topically to affected area daily. To the eyebrows 30 g 11 03/05/2024 ketoconazole (NIZORAL) 2 % shampoo Apply topically to affected area daily. To the scalp, leave on 3-5 minutes then rinse off 120 mL 11 03/05/2024 documented in this encounter Progress Notes * Ruthy Tang MD - 03/05/2024 1420 EDT Dermatology Outpatient Visit Note Chief Complaint Patient presents with New Patient Visit Rash of scalp, has been going on for a few years. Tried fluocinonide solution, but stopped due to burning. Not using anything currently Dermatologic History: Rash of scalp, seborrheic dermatitis vs psoriasis per referral -fluocinonide solution - previously: selenium sulfide shampoo Last Dermatology Clinic Visit: [facility] SUBJECTIVE: Emelina Reddy is a 23 y.o. female who presents for new evaluation and treatment for itchy and flaky rash of her scalp. Ongoing for several years. Was prescribed fluocinonide solution for itch, butit burned, so she's no longer using. Also trial selenium sulfide shampoo, but it made her hair greasy. Washes scalp every 2-daniel days. Scalp rash will become worse if she showers fewer than every 2 days. Not currently treating. Next, she reports small bumps of her temples. Has a patch of her left eyebrow that comes and goes. OBJECTIVE: Focused cutaneous examination was performed. - occipital scalp, left brow: pink greasy scaled papules - temporal scalp: pink papules ASSESSMENT & PLAN: Seborrheic dermatitis - Wash scalp with ketoconazole shampoo. Let sit for 3-5 minutes before washing off. Repeat on days of shower. Can apply regular shampoo and conditioner afterward. - May consider alternating between ketoconazole shampoo and over the counter Tsal shampoo if more scaly. - Apply ketoconazole cream to affected area of the left brow daily as needed. - Apply fluocinonide to the face twice a day for up to 2 weeks per month as needed for itch. To help with stinging, recommend mixing with an oil. Do not mix in olive oil. - May consider betamethasone lotion, protopic ointment/Elidel cream, or reflumilast in future if not controlled with above. FOLLOW UP: She will Return if symptoms worsen or fail to improve. or in the interim should problems arise. Scribe Attestation By time stamping my name below, I attest that this documentation has been prepared under the direction and in the presence of the provider listed as the provider on this encounter. Claudette Shaffer 03/05/2024 14:50 Provider Attestation: By time stamping my name below, I, as the provider for this encounter, personally performed the services described in this documentation. All medical record entries made by the scribed were at my direction and in my presence. I have reviewed the chart and an discharge instructions and agree that the record reflects my personal performance and is accurate and complete. Ruthy Tang MD 03/06/2024 15:48 documented in this encounter Plan of Treatment Upcoming Encounters Date Type Department Care Team (Late st Contact Info) Description 01/23/2025 9:00 EDT Office Visit [facility] Dermatology [address] [place] [address] Ruthy Tang MD [address] [facility] [address] [place] [phone] documented as of this encounter Visit Diagnoses Diagnosis Seborrheic dermatitis- Primary Seborrheic dermatitis, unspecified documented in this encounter Historical Medications * This list may reflect changes made after this encounter. DULERA 100-5 mcg/actuation Inhale 2 Puffs as directed 2 times daily. 10/22/2023 albuterol 90 mcg/actuation inhaler INHALE 1-2 PUFFS BY MOUTH EVERY 4-6 HOURS NEEDED 10/22/2023 added in this encounter Care Teams Destaticizer Feeder Relationship Specialty Start Date End Date Antonieta Armstrong MD [address] [facility] [address] [place] [phone] PCP - General 10/26/23 documented as of this encounter
--- OUTSIDE RECORDS SUMMARY | 2024-12-21 00:41 | XMS_ITS | Encounter Summary ---
Author Organization [facility] Address [address] [place] [address] Care Team Providers Care Wildlife Refuge Specialist Name Role Phone Antonieta Armstrong MD Primary Care Provider [phone] Encounter Details Date Type Department Care Team (Late st Contact Info) Description 02/26/2020 Lab Requisition [facility] Pathology & Laboratory Medicine - [facility] [address] [place], [place] [phone] Ankur James MD [address] [place] [phone] Encounter for other general examination Social History Tobacco Use Types Packs/Day Years [...] Info) Description 01/23/2025 9:00 EDT Office Visit [facility] Dermatology [address] [facility], [place], [place] [id number] Ruthy Tang MD [address] [place] [address] [place] [phone] documented as of this encounter Procedures Procedure Name Priority Date/Time Associated Diagnosis Comments DO NOT ORDER STANDALONE - BROAD COVID TEST Today 02/26/2020 15:10 EDT Encounter for other general examination COVID-19 TESTING Today 02/26/2020 15:1 0 EDT Encounter for other general examination documented in this encounter Results * DO NOT ORDER STANDALONE - BROAD COVID TEST (02/26/2020 15:10 EDT) Swab ENTIRE NASOPHARYNX / Unknown Swab / Unknown 02/26/2020 15:10 EDT 02/26/2020 21:38 EDT Ankur James MD MICROBIOLOGY - GENERAL EDDA VANEGAS Final Result [facility] [place] * COVID-19 TESTING (02/26/2020 15:10 EDT) COVID-19 rt-PCR Result Negative Negative 02/27/2020 8:57 EDT [facility] Performing Lab [facility] 02/27/2020 8:57 EDT [facility] Swab ENTIRE NASOPHARYNX / Unknown Swab / Unknown 02/26/2020 15:10 EDT 02/26/2020 21:38 EDT Ankur James MD MICROBIOLOGY - GENERAL EDDA VANEGAS Final Result [facility] [address] [place] [address] documented in this encounter Visit Diagnoses Diagnosis Encounter for other general examination documented in this encounter Care Teams Wildlife Refuge Specialist Relationship Specialty Start Date End Date Antonieta Armstrong MD [address] [place] [phone] PCP - General 10/26/23 documented as of this encounter
--- OUTSIDE RECORDS SUMMARY | 2024-12-21 00:41 | XMS_ITS | Encounter Summary ---
Author Organization [facility] Address [address] [place] [address] Care Team Providers Care Billing Checker Name Role Phone Antonieta Armstrong MD Primary Care Provider [phone] Encounter Details Date Type Department Care Team (Late st Contact Info) Description 10/19/2022 Lab Requisition [facility] Pathology & Laboratory Medicine - [facility] [address] [place] [address] Outr Resulting Lab, Provider Social History Tobacco [...] Info) Description 01/23/2025 9:00 EDT Office Visit [facility] [place] [address] [place] [address] Ruthy Tang MD [address] [place] [address] [place] [phone] documented as of this encounter Procedures Procedure Name Priority Date/Time Associated Diagnosis Comments HIV 1/2 ANTIGEN AND ANTIBODY, 4TH GENERATION Routine 10/18/2022 16:24 EST documented in this encounter Results * HIV 1/2 ANTIGEN AND ANTIBODY, 4TH GENERATION (10/18/2022 16:24 EST) HIV 1 and 2 Antibody/p24 Antigen, 4th Generation Negative Negative 10/20/2022 10:34 EST [facility] Comment:If acute HIV-1 infec tion is suspected in a high risk patient, submit plasma specimen for HIV-1 RNA quantitation test. Blood VENOUS BLOOD / Unknown 10/18/2022 16:24 EST 10/19/2022 16:47 EST Narrative [facility] - 10/20/2022 10:34 EST Fourth Generation assay performed on the Siemens [employer] XPT. us Provider Outr Resulting Lab IMMUNOLOGY AND SEROL OGY ORDERABLES Final Result [facility] [address] [place] [address] documented in this encounter Visit Diagnoses Not on filedocumented in this encounter Care Teams Billing Checker Relationship Specialty Start Date End Date Antonieta Armstrong MD [address] [place] [phone] PCP - General 10/26/23 documented as of this encounter
[2024-12-21 10:22] LABS: Abs Immature Grans 0.01 10^3/uL (0.0-0.06); Absolute Basophil Count 0.03 10^3/uL (0.0-0.2); Absolute Eosinophil Count 0.08 10^3/uL (0.0-0.7); Absolute Monocyte Count 0.55 10^3/uL (0.1-0.8); Absolute Neutrophil Count 2.61 10^3/uL (1.2-6.7); Basophils % 0.6 %; Eosinophils % 1.7 %; HCT 44.6 % (36.0-46.0); HGB 14.5 g/dL (11.2-15.7); Immature Grans % 0.2 %; Lymphocytes % 29.9 %; MCH 28.9 pg (27.0-33.0); MCHC 32.5 % (32.0-36.0); MCV 89 fL (80-95); MPV 10.4 fL (8.0-11.0); Monocytes % 11.8 %; Neutrophils % 55.8 %; Platelet Count 271 10^3/uL (130-400); RBC 5.02 10^6/uL (3.93-5.22); RDW 12.7 % (11.7-14.6); WBC 4.68 10^3/uL (4.4-10.8)
[2024-12-21 10:44] LABS: Iron 58 ug/dL (50-170); Total Iron Binding Capacity 334 ug/dL (250-450); Transferrin Sat 17 % (15-50)
[2024-12-21 10:51] LABS: ALT 26 U/L (14-59); AST 11 U/L (15-37); Albumin 3.4 g/dL (3.4-5.0); Alkaline Phosphatase 98 U/L (46-116); Anion Gap 7.5 mmol/L (3-11); BUN 7 mg/dL (7-18); Bilirubin, Total 0.41 mg/dL (0.2-1.0); CO2 26.5 mmol/L (21.0-32.0); CREATININE 1.1 mg/dL (0.55-1.02); Calcium 9.2 mg/dL (8.5-10.1); Chloride 110 mmol/L (98-107); Estimated GFR 71.96 (mL/min/1.73m2); Ferritin 203 ng/mL (8-252); Glucose 79 mg/dL (74-106); Potassium 4.3 mmol/L (3.5-5.1); Sodium 144 mmol/L (136-145); TSH (W/Ref FT4) 1.96 uIU/mL (0.36-3.74); Total Protein 7.3 g/dL (6.4-8.2)
== END 2024-12-21 00:40 | disposition home or self-care (01) ==
LOC: LBO 00:39
PROVIDERS: PCP Family Medicine; Visit Provider Family Medicine
DX: L65.9 Nonscarring hair loss, unspecified (principal)
CPT/HCPCS: 36415; 80053; 82728; 83540; 83550; 84443; 85025

== ENCOUNTER 2025-07-15 12:11 | Outpatient (REF) | payer OTHER, SELFPAY ==
--- NOTE | 2025-07-15 10:15 | PAPFT_PTH ---
PATIENT: Emelina Reddy LOC: [facility]#:[id number] AGE/SX: 24/F ROOM: RE07/15/[address]: Antonieta Armstrong : 2000 BED: DIS: 07/15/2025 SPEC #: [id number] RECD: 07/16/25 12:59 STATUS: NAIF SANTOS #: [id number] KHALIDA: 07/15/25 10:[address]: Antonieta Armstrong DEPT: [facility] Cytology RECD BY: Catia Fox Tissues: 1 - CX/ENDOCX FOR PAP SMEARS Procedures: PAP THIN PREP/[facility] Screening Comments: [id number]
== END 2025-07-15 12:12 | disposition home or self-care (01) ==
LOC: NCHCN 12:11
PROVIDERS: PCP Family Medicine; Visit Provider Family Medicine
DX: Z12.4 Encounter for screening for malignant neoplasm of cervix (principal)
CPT/HCPCS: 88142